=== PATIENT | male | born 1960 | race Caucasian/White ===

== ENCOUNTER → 2016-12-25 | Outpatient (CLI) | payer BC ==
[2016-12-25 17:26] LABS: BLOOD UREA NITROGEN 24 mg/dL (7-22); CALCIUM 9.3 mg/dL (8.7-10.7); EST GLOMERULAR FILTRATION > 60 (>60 ml/min/1.73m(2)); SERUM ALBUMIN 4.5 g/dL (3.5-4.8)
[2016-12-25 17:28] LABS: BASOPHILS # (AUTO) 0.03 10*3/UL; BASOPHILS % (AUTO) 0.4 % (0-1); EOSINOPHILS # (AUTO) 0.09 10*3/UL; EOSINOPHILS % (AUTO) 1.1 % (0-8); HEMATOCRIT 46.5 % (42.0-52.0); HEMOGLOBIN 15.5 g/dL (14.0-18.0); LYMPHOCYTES # (AUTO) 2.54 10*3/uL; MEAN CORPUSCULAR HEMOGLOBIN 30.3 PG (27-31); MEAN CORPUSCULAR HGB CONC 33.3 g/dL (33-37); MEAN PLATELET VOLUME 9.8 FL (7.4-12.2); MONOCYTES # (AUTO) 0.95 10*3/UL (0.3-0.8); NEUTROPHILS # (AUTO) 4.31 10*3/UL; NEUTROPHILS % (AUTO) 54.4 % (50-80); RED BLOOD COUNT 5.12 10^6/uL (4.70-6.10)
[2016-12-25 17:38] LABS: PLATELET MORPHOLOGY COMMENT NORMAL MORPHOLOGY (NORM); RBC MORPHOLOGY COMMENT NORMAL MORPHOLOGY (NORM); WBC MORPHOLOGY COMMENT NORMAL MORPHOLOGY (NORM)
== END ==
LOC: MOB LAB 15:39
PROVIDERS: ATTEND Family Medicine
DX: K92.1 Melena (principal); R10.84 Generalized abdominal pain
CPT/HCPCS: 36415; 80053; 85025

== ENCOUNTER 2017-01-23 06:59 | Day surgery (SDC) | payer BC ==
[~2017-01-23 06:59] MED LIST: LIDOCAINE W/ SODIUM BICARB 0.5 ML SYR ONE; Lactated Ringers 1,000 ML PRIMARY IV ONE
[2017-01-23] MEDS ORDERED: LIDOCAINE HCL/PF 2% (20 MG/ML) - 5 ML SYRINGE ONE (07:28)
[2017-01-23] MEDS ORDERED: LIDOCAINE 2% VISCOUS(20 MG/1 ML) - 15 ML UD CUP PO ONE (07:28)
[2017-01-23] MEDS ORDERED: fentaNYL Inj 100 MCG/2 ML VIAL ONE (07:28)
[2017-01-23] MEDS ORDERED: MIDAZOLAM 5 MG/1 ML ONE (07:28)
--- NOTE | 2017-01-23 08:38 | GEN.OPNOTE ---
EGD Operative Note Surgery Date: 01/23/17 Preoperative Diagnosis: Screening for colon cancer. History of Mcintyre's. Melanotic stools Postoperative Diagnosis: Mcintyre's esophagus. Inflammatory condition with ulcers of the cecum. Polyps at 30 cm Procedure: Esophagogastroduodenoscopy with biopsy. Colonoscopy with snare polypectomy and biopsies Surgeon: Fermin Olivo MD Anesthesia Provider: Marcell Diaz CRNA Anesthesia Type: MAC Indications: Patient has a history of Mcintyre's esophagus. He has a family history of colon cancer. He's been having some melanotic stools Findings: Esophagus: Olympus video EGD scope inserted into the posterior pharynx. Guided into the esophagus under direct visualization. Patient had normal-appearing esophagus down to the GE junction. There he had what appeared to be Mcintyre's esophagus. Biopsies were taken all 4 quadrants. GE Junction : Approximate 40 cm from incisors Fundus : Scope retroflexed on itself showing a small hiatal hernia the fundus otherwise was within normal limits Body : Body the stomach and no abnormal pathology Prepyloric : Prepyloric areas within normal limits Small Intestine : First second third portion of duodenum within normal limits A lubricated flexible upper endoscope was inserted and passed through the esophagus and stomach into the duodenum.
--- NOTE | 2017-01-23 08:41 | GEN.OPNOTE ---
Colonoscopy Procedure Note Surgery Date: 01/23/17 Preoperative Diagnosis: Painful colon cancer. Melanotic stools. History of Mcintyre's esophagus Postoperative Diagnosis: Mcintyre's esophagus. Inflammatory condition with ulcers in the cecum. Colon polyps at 30 cm Procedure: Colonoscopy with snare polypectomy and biopsies. EGD with biopsies Surgeon: Fermin Olivo MD Anesthesia Provider: Marcell Diaz CRNA Anesthesia Type: MAC Indications: Patient has a history of colon cancer in the family he's been having melanotic stools also has a history of Mcintyre's esophagus Findings: Prep : Excellent Cecum : Scope was advanced to the cecum. Found the oneida's foot. He had some shallow ulcerations that had bled. There is some inflammatory condition of the cecum. Biopsies were taken. I could not cannulate the ileocecal valve and therefore cannot see into the terminal ileum. Ascending : Ascending colons within normal limits Transverse : Transverse colon had no polyps tumors or cancers Sigmoid : Sigmoid colon had polyps at 30 cm removed with snare polypectomy. Descending colon was within normal limits Rectum : Rectum no abnormal pathology identified Digital Rectal Exam : No rectal masses A lubricated flexible colonoscope was inserted and passed to the blind end of the cecum.
[2017-01-23 09:03] VITALS: RESP 18
[2017-01-23 10:23] VITALS: TEMP 97
== END 2017-01-23 10:15 | disposition home or self-care (01) ==
LOC: SDSC 06:59
PROVIDERS: ATTEND Surgery
DX: Z12.11 Encounter for screening for malignant neoplasm of colon (principal); K22.70 Barrett's esophagus without dysplasia; K63.5 Polyp of colon
CPT/HCPCS: 43239; 45385; J2704; J3010; J2001; J2250; J7120